=== PATIENT | male | born 1985 | race Caucasian/White ===

== ENCOUNTER 2019-11-01 15:58 | Emergency (ER) | payer OTHER ==
[~2019-11-01] VITALS: Ht 182.9 cm; Wt 104.3 kg
[2019-11-01 16:10] VITALS: BP 131/86
--- NOTE | 2019-11-01 16:51 | NUR ---
Patient transferred to bed 8 via wheelchair by tech. RN evaluating patient at bedside.
--- NOTE | 2019-11-01 17:09 | NUR ---
34 y/o m presents to ER c/o left ankle pain since this morning. Per pt he twisted his left ankle while going down the stairs and I heard a "pop." Pt unable to bear any weight on left foot. Swelling noted to ankle. 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 KYRIE Forbes evaluating pt at bedside. Allergies: NKA Med hx: none
--- NOTE | 2019-11-01 17:19 | NUR ---
electrophysiology tech at bedside.
--- NOTE | 2019-11-01 17:22 | NUR ---
Denise kruse in [facility] - 11/01/19 at 1726 by MARC xray at bedside
--- NOTE | 2019-11-01 18:01 | NUR ---
POSTERIOR SHORT LEG SPLINT APPLIED ON PT L ANKLE. +CSM
--- NOTE | 2019-11-01 18:12 | NUR ---
PT GIVEN INSTRUCTION ON PROPER USE OF CRUTCHES. PT STATED HE HAS USED CRUTCHES BEFORE. CRUTCHES FITTED TO PT HEIGHT AND ARM LENGTH. PT GIVEN INSTRUCTION ON PROPER USE OF CRUTCHES, INCLUDING SITTING TO STANDING AND VICE VERSA, ASCENDING/ DESCEDNING STAIRS, AND WALKING. PT DEMONSTRATED SAFE USE FOR APPROXIMATELY 40 FEET, PT STATED HE FELT COMFORTABLE WITH USE.
--- NOTE | 2019-11-01 18:15 | NUR ---
Crutches dispensed. Taught proper use, patient returned demo.
[2019-11-01 18:21] VITALS: BP 124/82
--- NOTE | 2019-11-01 18:21 | NUR ---
Patient discharged with v/s stable. Written and verbal after care instructions given and explained. Patient verbalized understanding. Ambulatory with crutches and steady gait. All questions addressed prior to discharge. Advised to follow up with PMD.
== END 2019-11-01 18:21 | disposition home or self-care (01) ==
LOC: MED 15:58
DX: M25.572 Pain in left ankle and joints of left foot (principal); X50.1XXA Overexertion from prolonged static or awkward postures, initial encounter; Y93.89 Activity, other specified; Y92.89 Other specified places as the place of occurrence of the external cause; Y99.8 Other external cause status
CPT/HCPCS: 29515; 73610; 73630; 99283; Q0092

== ENCOUNTER 2020-04-07 22:36 | Emergency (ER) | payer OTHER ==
[~2020-04-07] VITALS: Ht 180.3 cm; Wt 106.6 kg
[2020-04-07 22:45] VITALS: BP 143/89
--- NOTE | 2020-04-07 22:50 | NUR ---
PT TRIAGED AND SENT TO LOBBY.
--- NOTE | 2020-04-08 01:52 | NUR ---
PT BROUGHT TO CHAIR Claire.
[2020-04-08] MEDS ORDERED: LORazepam 2 MG/ML VIAL IM ONE (02:00)
--- NOTE | 2020-04-08 02:48 | NUR ---
EKG PERFORMED AT TRIAGE.
--- NOTE | 2020-04-08 02:48 | NUR ---
PT MEDICATED WITH ATIVAN IM BY CHERELLE DIEGO . TOLERATED WELL. JUDITH
[2020-04-08 03:32] VITALS: BP 130/75
== END 2020-04-08 03:32 | disposition home or self-care (01) ==
LOC: MED 22:36
DX: R00.2 Palpitations (principal); F41.9 Anxiety disorder, unspecified; Z98.890 Other specified postprocedural states
CPT/HCPCS: 93005; 96372; 99283; J2060